=== PATIENT | male | born 1945 | race Caucasian/White ===

== ENCOUNTER 2019-09-10 10:51 | Day surgery (SDC) | payer OTHER ==
[~2019-09-10 10:51] MED LIST: ATORVASTATIN CA20 MG; COZAAR50 MG; FINASTERIDE5 MG; ZYLOPRIM100 M1
[2019-09-10] MEDS ORDERED: NEURONTIN300 MG PO (15:24)
[2019-09-10] MEDS ORDERED: ZOFRAN4 MG PO (15:24)
[2019-09-10] MEDS ORDERED: MIRALAX17 GM PO (15:24)
[2019-09-10] MEDS ORDERED: ULTRAM50 MG PO (15:24)
[2019-09-10] MEDS ORDERED: TYLENOL ARTHRI650 MG PO (15:24)
== END 2019-09-10 19:35 | disposition home or self-care (01) ==
LOC: CIR.AMB 10:51
DX: K40.90 Unilateral inguinal hernia, without obstruction or gangrene, not specified as recurrent (principal); K42.9 Umbilical hernia without obstruction or gangrene; D17.6 Benign lipomatous neoplasm of spermatic cord